=== PATIENT | female | born 1975 | race Caucasian/White ===

== ENCOUNTER → 2020-07-31 16:24 | Outpatient (CLI) | payer OTHER, SELFPAY ==
--- NOTE | ~2020-07-31 | US_ITS ---
EXAMINATION: US transvaginal EXAM DATE: 07/31/2020 16:51 INDICATION: Check IUD placement. TECHNIQUE: Pelvic transvaginal sonogram was performed. There are multiple grayscale and Doppler dakota ges available for interpretation. There is no prior study for comparison. FINDINGS: Uterus measures 9.0 x 3.9 x 5.2 cm, with focal region likely fibroid in the right anterior aspect of the uterus measuring 3 cm. There is also artifact from IUD centrally positioned within the endometrial cavity. Endometrial stripe measures 6 mm, within normal limits. There is no free pelvic fluid. Right adnexa: The ovary measures 2.8 x 1.6 x 1.6 cm and is morphologically normal. Ovarian vascular f low confirmed. Left adnexa: The ovary measures 2.1 x 1.5 x 1.2 cm and is morphologically normal. Ovarian vascular fl ow confirmed. IMPRESSION: IUD in expected position. Reviewed, dictated and finalized at location A. TS SPECIALIST IMPRESSION: IUD in expected position.
== END ==
PROVIDERS: PCP Physician Assistant; Visit Provider Nurse Practitioner
DX: Z30.431 Encounter for routine checking of intrauterine contraceptive device (principal)
CPT/HCPCS: 76830

== ENCOUNTER → 2021-01-25 13:55 | Outpatient (CLI) | payer OTHER, SELFPAY ==
--- NOTE | ~2021-01-25 | US_ITS ---
EXAMINATION: US pelvic complete EXAM DATE: 01/25/2021 14:20 INDICATION: Pelvic pain, IUD . History of fibroids, missing IUD string. TECHNIQUE: Pelvic transabdominal sonogram was performed. There are multiple grayscale and Doppler images available for interpretation. Comparison is made to prior examination from 07/31/2020. FINDINGS: Uterus measures 9.6 x 3.8 x 6.0 cm, probable 2.9 cm fibroid identified. Artifact from IUD appears to be centrally located within the endometrium. Endometrial stripe measures 4 mm, within norm al limits. There is no free pelvic fluid. Right adnexa: The ovary measures 3.6 x 1.6 x 1.8 cm and is morphologically normal. Ovarian vascular f low confirmed. Left adnexa: The ovary measures 3.5 x 4.2 x 3.5 cm and is morphologically normal. Ovarian vascular fl ow confirmed. IMPRESSION: 1. IUD in expected position. 2. Fibroid. Reviewed, dictated and finalized at location A.
== END ==
PROVIDERS: Visit Provider Nurse Practitioner
DX: R10.2 Pelvic and perineal pain (principal); D25.9 Leiomyoma of uterus, unspecified; Z97.5 Presence of (intrauterine) contraceptive device
CPT/HCPCS: 76856

== ENCOUNTER → 2023-01-28 15:35 | Outpatient (CLI) | payer OTHER, SELFPAY ==
--- NOTE | ~2023-01-28 | US_ITS ---
Pelvic ultrasound. Clinical History: Abnormal uterine bleeding Technique: Realtime transabdominal scanning of the pelvis was performed. Color flow Doppler and Doppl er spectral analysis were performed. Findings: The uterus is anteverted. The endometrial stripe has a thickness of 8 mm. Suspected exophy tic fibroid measuring 2.8 cm. IUD is probably in satisfactory position. The right ovary measures 2.9 x 3.2 x 1.2 cm. No significant right ovarian or adnexal mass is seen. The left ovary measures 2.7 x 2.7 x 1.5 cm. No significant left ovarian or adnexal mass is seen. There is no evidence of free fluid in the cul de sac. Impression: IUD is somewhat poorly seen, likely in satisfactory position. Exophytic fibroid, as above. Reviewed, dictated and finalized at location . Impression: IUD is somewhat poorly seen, likely in satisfactory position. Exophytic fibroid, as above.
== END ==
PROVIDERS: PCP Nurse Practitioner; Visit Provider Nurse Practitioner
DX: N93.8 Other specified abnormal uterine and vaginal bleeding (principal)
CPT/HCPCS: 76856

== ENCOUNTER → 2023-04-03 15:11 | Outpatient (CLI) | payer OTHER, SELFPAY ==
--- NOTE | ~2023-04-03 | MM_ITS ---
EXAMINATION: MM screening feliberto BI w derrell HISTORY: Screening TECHNIQUE: Craniocaudal and mediolateral oblique 3-D tomosynthesis images were obtained and synthetic 2-D images were generated. CAD analysis was submitted and interpreted. COMPARISON: Comparison to multiple prior studies sequentially, with oldest reviewed study dated 01/08. BREAST PARENCHYMAL COMPOSITION: The breasts are heterogeneously dense, which may obscure small masses FINDINGS: There are developing nodular asymmetries in the upper outer quadrant of the right breast. T here is a developing cluster of calcifications lateral aspect of the right breast on CC view. There i s a developing cluster of indeterminate calcifications superiorly in the left breast on MLO view. IMPRESSION: 1. Developing nodular asymmetries of the right breast and bilateral clusters of calcifications. 2. Additional mammographic views and possible breast ultrasound are recommended. BI-RADS Category 0: Incomplete: Needs additional imaging evaluation. Reviewed, dictated and finalized at location A. IMPRESSION: 1. Developing nodular asymmetries of the right breast and bilateral clusters of calcifications. 2. Additional mammographic views and possible breast ultrasound are recommended . BI-RADS Category 0: Incomplete: Needs additional imaging evaluation.
== END ==
PROVIDERS: PCP Physician Assistant; Visit Provider Nurse Practitioner
DX: Z12.31 Encounter for screening mammogram for malignant neoplasm of breast (principal); R92.8 Other abnormal and inconclusive findings on diagnostic imaging of breast
CPT/HCPCS: 77063; 77067

== ENCOUNTER → 2023-04-30 08:45 | Outpatient (CLI) | payer OTHER, SELFPAY ==
--- NOTE | ~2023-04-30 | MMUS_ITS ---
EXAMINATION: MM diagnostic feliberto BI w derrell, US breast BI limited HISTORY: Follow-up bilateral breast asymmetries and bilateral breast calcifications. TECHNIQUE: Additional 3-D tomosynthesis images of breasts were performed and synthetic 2-D images wer e generated. CAD analysis was submitted and interpreted. High resolution limited bilateral breast ult rasound was performed. COMPARISON: Comparison to multiple prior studies sequentially, with oldest reviewed study dated 01/11. BREAST PARENCHYMAL COMPOSITION: The breasts are heterogeneously dense, which may obscure small masses FINDINGS: MAMMOGRAPHIC FINDINGS: There are persistent masses centered in the upper outer quadrant of the right breast which are obscur ed by dense fibroglandular tissue. There are likely benign right breast calcifications in the lateral aspect of the right breast and superiorly in the left breast on MLO view. ULTRASOUND: Complete bilateral US of all 4 quadrants of the breasts and retroareolar region was reviewed. Right breast: There are multiple simple and complicated cyst of the right breast. At 12:00, 5 cm from the nipple there is an oval hypoechoic 7 mm mass with mixed posterior attenuation, no internal vascu larity, parallel orientation. Left breast: There is an oval hypoechoic mass measuring 5 mm with heterogeneous internal echotexture. Parallel orientation, no internal vascularity and no posterior features, likely benign. At 4:00, 4 c m from the nipple there is a 7 mm cyst. IMPRESSION: 1. Right breast mass at 12:00, 5 cm from the nipple measuring 7 mm. Ultrasound-guided biopsy recommen ded. BI-RADS Category 4. 2. Additional bilateral breast masses and bilateral breast calcifications are likely benign. Six-kane h follow-up is recommended. Reviewed, dictated and finalized at location A. IMPRESSION: 1. Right breast mass at 12:00, 5 cm from the nipple measuring 7 mm. Ultrasound- guided biopsy recommended. BI-RADS Category 4. 2. Additional bilateral breast masses and bilateral breast calcifications are l ikely benign. Six-month follow-up is recommended.
== END ==
PROVIDERS: PCP Physician Assistant; Visit Provider Obstetrics & Gynecology Gynecology
DX: R92.8 Other abnormal and inconclusive findings on diagnostic imaging of breast (principal); N63.15 Unspecified lump in the right breast, overlapping quadrants; N63.20 Unspecified lump in the left breast, unspecified quadrant
CPT/HCPCS: 76642; 77062; 77066; G0279

== ENCOUNTER 2024-02-15 15:31 | Outpatient (CLI) | payer OTHER, SELFPAY ==
--- NOTE | ~2024-02-15 | US_ITS ---
Pelvic ultrasound. Clinical History: Abnormal uterine bleeding Technique: Realtime transabdominal and transvaginal scanning of the pelvis was performed. Color flow Doppler and Doppler spectral analysis were performed. Findings: The uterus is anteverted. The endometrial stripe has a thickness of 10 mm. IUD in satisfac tory position. Exophytic lower uterine segment fibroid measures 3.8 cm in maximum diameter.. The right ovary is not visualized. No significant right ovarian or adnexal mass is seen. The left ovary measures 5.5 x 3.1 x 4.1 cm. Septated cyst versus 2 adjacent cysts are present within the left ovary, overall measuring up to 3.1 x 3.0 x 3.0 cm in extent.. There is no evidence of free fluid in the cul de sac. Impression: IUD in satisfactory position. 3.1 x 3.0 x 3.0 cm septated cyst versus 2 adjacent cysts in the left ovary. Reviewed, dictated and finalized at [facility]. Impression: IUD in satisfactory position. 3.1 x 3.0 x 3.0 cm septated cyst versus 2 adjacent cysts in the left ovary.
== END 2024-02-15 15:32 ==
PROVIDERS: PCP Nurse Practitioner; Visit Provider Nurse Practitioner
DX: N93.8 Other specified abnormal uterine and vaginal bleeding (principal); N83.202 Unspecified ovarian cyst, left side; Z97.5 Presence of (intrauterine) contraceptive device
CPT/HCPCS: 76830

== ENCOUNTER 2025-03-28 13:11 | Outpatient (CLI) | payer OTHER, SELFPAY ==
--- NOTE | ~2025-03-28 | US_ITS ---
Pelvic ultrasound. Clinical History: Ovarian cyst Technique: Realtime transabdominal scanning of the pelvis was performed. Color flow Doppler and Doppl er spectral analysis were performed. Findings: The uterus is anteverted. The endometrial stripe has a thickness of 3 mm. Anterior wall pa rtially exophytic fibroid measures 3.4 x 3.4 x 3.0 cm. The right ovary measures 2.8 x 1.4 x 3.1 cm. No significant right ovarian or adnexal mass is seen. The left ovary measures 3.7 x 2.0 x 3.2 cm. Simple left ovarian cyst measures 2.1 cm in diameter. There is no evidence of free fluid in the cul de sac. Impression: 3.4 cm uterine fibroid, as above. 2.1 cm simple left ovarian cyst. Reviewed, dictated and finalized at [facility]. Impression: 3.4 cm uterine fibroid, as above. 2.1 cm simple left ovarian cyst.
== END 2025-03-28 13:12 | disposition home or self-care (01) ==
LOC: MICIMG 13:14
PROVIDERS: PCP Nurse Practitioner; Visit Provider Nurse Practitioner
DX: N83.202 Unspecified ovarian cyst, left side (principal); D25.9 Leiomyoma of uterus, unspecified
CPT/HCPCS: 76856